=== PATIENT | female | born 1960 | race African-American/Black ===

== ENCOUNTER → 2020-01-30 | Outpatient (CLI) | payer OTHER ==
[~2020-01-30] MED LIST: CLONIDINE HCL0.1 MG PO; FUROSEMIDE40 MG PO; IRBESARTAN150 MG PO; LABETALOL HCL200 MG PO; NIFEDIPINE10 MG PO
[2020-01-30 10:15] LABS: ANION GAP 12.6 mmol/L (8-16); BLOOD UREA NITROGEN 14 mg/dL (7-26); BUN/CREATININE RATIO 14 (6-25); CALCIUM 9.4 mg/dL (8.4-10.2); CARBON DIOXIDE 27 mmol/L (22-29); CHLORIDE 104 mmol/L (98-107); CREATININE, SERUM 1.01 mg/dL (0.57-1.11); EST GLOMERULAR FILTRATION RATE > 60 ML/MIN (60-); GLUCOSE 87 mg/dL (74-118); POTASSIUM 3.6 mmol/L (3.5-5.1); SODIUM 140 mmol/L (136-145)
== END ==
LOC: DX 13:55 → EDSTATUS 02-07 12:00
PROVIDERS: ATTEND Orthopaedic Surgery
DX: Z01.818 Encounter for other preprocedural examination (principal); S83.232A Complex tear of medial meniscus, current injury, left knee, initial encounter; M94.262 Chondromalacia, left knee; Z11.59 Encounter for screening for other viral diseases
CPT/HCPCS: 36415; 80048; 93005; U0002

== ENCOUNTER 2024-10-18 20:39 | Emergency (ER) | payer OTHER ==
[~2024-10-18] VITALS: Ht 170.2 cm; Wt 123.8 kg
[2024-10-18 20:50] VITALS: TEMP 99.6
[2024-10-18 22:05] VITALS: PULSE 89; RESP 19
[2024-10-18] MEDS ORDERED: NAPROSYN500 MG PO (22:53)
[2024-10-18 23:12] VITALS: BP 195/109; PULSE 89; RESP 20; TEMP 97.7; O2SAT 98
== END 2024-10-18 23:14 | disposition home or self-care (01) ==
LOC: ER 21:08
DX: M25.562 Pain in left knee (principal); M25.561 Pain in right knee; W01.0XXA Fall on same level from slipping, tripping and stumbling without subsequent striking against object, initial encounter; Y93.01 Activity, walking, marching and hiking; Y92.89 Other specified places as the place of occurrence of the external cause
CPT/HCPCS: 99283